=== PATIENT | female | born 1970 | race African-American/Black ===

== ENCOUNTER 2020-11-24 09:28 | Outpatient (CLI) | payer BC, SELFPAY ==
--- NOTE | ~2020-11-24 | MMUS_ITS ---
US breast biopsy LT w image, MM post biopsy invasive LT EXAMINATION: US GUIDED NEEDLE BIOPSY WITH VAC UUM ASSISTANCE DATE: 11/24/2020 10:55 CDT INDICATION: Left breast mass seen on recent examination. Ultrasound-guided core biopsy is requested to evaluate for malignancy. TECHNIQUE AND FINDINGS: The risks and potential benefits of the procedure were discussed with the patient, and written inform ed consent was obtained. After sterile preparation of the left breast, 1% lidocaine was utilized for local anesthesia. 1% lidocaine with epinephrine was used for deep anesthesia. A 10G vacuum-assisted biopsy gun needle was advanced through to the outer edge of the region of inter est from a superior approach utilizing sonographic guidance. A total of 4 tissue core samples were o btained through the lesion. An Inrad tissue marker clip was then placed at the biopsy site. Hemostas is was achieved. The patient tolerated procedure well and there was no evidence of immediate complication. The patien t was given verbal instructions partly is from the department. Left breast mammograms to document ti ssue marker clip placement. The tissue samples were submitted to surgical pathology for histologic an alysis. IMPRESSION: 1. Successful ultrasound-guided vacuum-assisted biopsy of left breast mass located in the upper inne r quadrant with tissue marker placement. Please refer to pathology report for histologic analysis. Reviewed, dictated and finalized at location A. IMPRESSION: 1. Successful ultrasound-guided vacuum-assisted biopsy of left breast mass loc ated in the upper inner quadrant with tissue marker placement. Please refer to pathology report for histologic analysis.
== END 2020-11-24 09:29 | disposition home or self-care (01) ==
PROVIDERS: Visit Provider Surgery
DX: N60.22 Fibroadenosis of left breast (principal)
CPT/HCPCS: 19083; 88305